=== PATIENT | female | born 1980 | race Caucasian/White ===

== ENCOUNTER 2017-08-30 08:27 | Emergency (ER) | payer OTHER, MEDICAID ==
[~2017-08-30] VITALS: Ht 165.1 cm; Wt 81.6 kg
[2017-08-30 08:56] VITALS: BP 109/75; Ht 165.1 cm; Wt 81.6 kg
== END 2017-08-30 10:22 | disposition home or self-care (01) ==
LOC: ED 08:27
DX: H66.92 Otitis media, unspecified, left ear (principal); Z88.2 Allergy status to sulfonamides

== ENCOUNTER 2017-09-09 08:23 | Emergency (ER) | payer OTHER, MEDICAID ==
[~2017-09-09] VITALS: Ht 165.1 cm; Wt 86.2 kg
[2017-09-09 09:45] VITALS: BP 119/80
== END 2017-09-09 09:45 | disposition home or self-care (01) ==
LOC: ED 08:23
DX: N39.0 Urinary tract infection, site not specified (principal); F17.200 Nicotine dependence, unspecified, uncomplicated; M79.7 Fibromyalgia; F31.9 Bipolar disorder, unspecified; Z88.2 Allergy status to sulfonamides
CPT/HCPCS: 99406

== ENCOUNTER 2017-10-01 21:22 | Inpatient (IN) | payer OTHER ==
[~2017-10-01] VITALS: Ht 165.1 cm; Wt 89.3 kg
[2017-10-01 21:31] VITALS: Ht 165.1 cm; Wt 89.3 kg
[2017-10-01 22:11] LABS: BASOPHIL % 0.2 % (0-2); PLATELET COUNT 317 x10^3mcL (130-400); RED CELL DISTRIBUTION WIDTH 13.9 % (11.5-14.5)
[2017-10-01 22:33] LABS: CALCIUM 8.8 mg/dL (8.5-10.1); CARBON DIOXIDE 23.8 mmol/L (21-32); CHLORIDE SERUM 104 mmol/L (98-107); CREATININE SERUM 0.6 mg/dL (0.6-1.0); GFR1 > 60 mL/min; GLUCOSE SERUM 99 mg/dL (74-106); POTASSIUM SERUM 3.8 mmol/L (3.5-5.1); SODIUM SERUM 137 mmol/L (136-145)
[2017-10-01 22:35] LABS: UA SPECIFIC GRAVITY >=1.030 (1.005-1.035); microscopic required? YES; urine erythrocyte NEGATIVE (NEGATIVE)
[2017-10-01 22:37] LABS: ALBUMIN 4.1 g/dL (3.4-5.0); ALKALINE PHOSPHATASE 74 U/L (46-116); ALT/SGPT 25 U/L (14-59); AST/SGOT 20 U/L (15-37); BILIRUBIN TOTAL 0.21 mg/dL (0.20-1.00); LIPASE 839 IU/L (73-393); TOTAL PROTEIN, SERUM 7.7 g/dL (6.4-8.2)
[2017-10-02] MEDS ORDERED: EFFEXOR-XR37.5 MG (01:33)
[2017-10-02 02:28] LABS: AMPHETAMINE QUAL UR NONE DETECTED (NEG <=1000)
[2017-10-02 02:33] LABS: CHOLESTEROL/HDL RATIO 3.1; MAGNESIUM 2.2 mg/dL (1.8-2.4); PHOSPHOROUS 2.8 mg/dL (2.5-4.9)
[2017-10-02 02:41] LABS: T3 TOTAL 0.88 ng/mL
[2017-10-02 02:49] LABS: FREE T4 0.86 ng/dL (0.76-1.46); FREE THYROXINE INDEX 2.3 ug/dL (1.4-4.5); T4(THYROXINE) 7.2 ug/dL (4.7-13.3)
[2017-10-02 03:33] VITALS: BP 102/67
[2017-10-02 06:42] LABS: BASOPHIL % 0.2 % (0-2); PLATELET COUNT 263 x10^3mcL (130-400); RED CELL DISTRIBUTION WIDTH 13.4 % (11.5-14.5)
[2017-10-02 07:05] LABS: CALCIUM 7.8 mg/dL (8.5-10.1); CARBON DIOXIDE 27.8 mmol/L (21-32); CHLORIDE SERUM 110 mmol/L (98-107); CREATININE SERUM 0.6 mg/dL (0.6-1.0); GFR1 > 60 mL/min; GLUCOSE SERUM 99 mg/dL (74-106); POTASSIUM SERUM 4.1 mmol/L (3.5-5.1); SODIUM SERUM 142 mmol/L (136-145)
[2017-10-02 09:59] VITALS: BP 98/65
[2017-10-02 13:33] VITALS: BP 105/72
[2017-10-02 17:47] VITALS: BP 106/63
[2017-10-02 21:14] VITALS: BP 102/61
[2017-10-03 05:31] VITALS: BP 100/70
[2017-10-03 06:04] LABS: BASOPHIL % 0.6 % (0-2); PLATELET COUNT 226 x10^3mcL (130-400); RED CELL DISTRIBUTION WIDTH 13.8 % (11.5-14.5)
[2017-10-03 06:23] LABS: CALCIUM 7.8 mg/dL (8.5-10.1); CARBON DIOXIDE 27.8 mmol/L (21-32); CHLORIDE SERUM 110 mmol/L (98-107); CREATININE SERUM 0.5 mg/dL (0.6-1.0); GFR1 > 60 mL/min; GLUCOSE SERUM 86 mg/dL (74-106); MAGNESIUM 2.4 mg/dL (1.8-2.4); PHOSPHOROUS 3.1 mg/dL (2.5-4.9); POTASSIUM SERUM 3.6 mmol/L (3.5-5.1); SODIUM SERUM 144 mmol/L (136-145)
[2017-10-03 08:04] LABS: IRON 84 ug/dL (50-170)
[2017-10-03 08:10] LABS: TOTAL IRON BINDING CAPACITY 208 ug/dL (250-450)
[2017-10-03 08:45] LABS: RED BLOOD CELLS 3.64 M/mm3 (4.10-5.10)
[2017-10-03 09:27] VITALS: BP 116/75
[2017-10-03 12:25] VITALS: BP 113/78
[2017-10-03] MEDS ORDERED: FLA500 PO (14:52)
[2017-10-03] MEDS ORDERED: LAC PO (14:53)
[2017-10-03] MEDS ORDERED: ZOF4 PO (14:53)
[2017-10-03] MEDS ORDERED: NORCO1 TA2 PO (14:53)
== END 2017-10-03 15:24 | disposition left against medical advice (07) | DRG 438 ==
LOC: ED 21:22 → DU 10-02 00:47
PROVIDERS: Emergency Medicine; Family Medicine; Family Medicine Sports Medicine
DX: K85.90 Acute pancreatitis without necrosis or infection, unspecified (principal); N17.0 Acute kidney failure with tubular necrosis; N76.0 Acute vaginitis; M79.7 Fibromyalgia; E86.0 Dehydration; E83.51 Hypocalcemia; D64.9 Anemia, unspecified; K21.9 Gastro-esophageal reflux disease without esophagitis; R80.9 Proteinuria, unspecified; F12.10 Cannabis abuse, uncomplicated; F31.9 Bipolar disorder, unspecified; Z68.32 Body mass index [BMI] 32.0-32.9, adult; F17.210 Nicotine dependence, cigarettes, uncomplicated
CPT/HCPCS: 83880; 84439; G0480; J2060; J2270; J2405; J2543; J2550; J3490; J7030; Q0092; Q0163; Q9967